=== PATIENT | female | born 2000 | race Asian ===

== ENCOUNTER 2025-03-29 13:18 | Outpatient (AMB) | payer BC, SELFPAY ==
--- NOTE | 2025-03-29 13:32 | OBCLNT_ITS ---
Vital Signs 03/29/25 13:33 Height 1.55 m Height Method Stated Weight 54.034 kg Weight Measurement Method Standing Scale BMI 22.5 BP 117/76 Blood Pressure Source Automatic Cuff Blood Pressure Location Left Upper Arm Position Sitting Respiration 14 Pulse 72 Pulse Source Monitor Temp 97.8 F Temp Source Oral Pulse Oximetry (%) 98 Oxygen Delivery Method Room Air Allergies/Home Meds Allergies & Medications Allergies NKA Allergy (Unknown, Uncoded 03/29/25 13:36) Medication Reconciliation vitamin-ferrous fumarate 28 mg iron-folic acid 800 mcg tablet ( Vitamins with Minerals) 1 tab PO QDAY #60 tabs 03/29/25 [Rx] Intake Visit Data Collection New Patient or Established: Established Patient (seen at [facility] within 3 years) Reason for Visit:: INITIAL CARE Seen by Clinical Staff ONLY (RN/MA): No Do You Feel Safe at Home: Yes Authorities Contacted: N/A PCP or OBGYN visit in last 3 months: No Hx Now: Yes Are you currently on any form of Control: No Last menstrual period: 01/20/25 Pain Present Currently: Yes Pain Location: Abdomen and Back Pain Scale Used: Arreguin-Carias/Numerical Pain scale:: 7 Smoking Status Smoking Status: Never smoker Questionnaires Covid-19 Vaccine Questionnaire Has patient been vacinated for Covid-19 Have you been vacinated for Covid-19: Yes PHQ-9 PHQ-2 Over the last 2 weeks, how often have you been bothered by any of the following problems? 1. Little interest or pleasure in doing things: not at all 2. Feeling down, depressed, or hopeless: not at all Total score: 0 PHQ-9 3. Trouble falling or staying asleep, or sleeping too much: Not at all 4. Feeling tired or having little energy: Not at all 5. Poor appetite or overeating: Not at all 6. Feeling bad about yourself - or that you are a failure or have let yourself or your family down: Not at all 7. Trouble concentrating on things, such as reading the newspaper or watching television: Not at all 8. Moving or speaking so slowly that other people could have noticed? - Or the opposite - being so fidgety or restless that you have been moving around a lot more than usual: not at all 9. Thoughts that you would be better off or of hurting yourself in some way: Not at all Total score: 0 Source: Developed by Drs. Bill Fernandez, Neyda Sullivan, Cheng Gregorio and colleagues, with an educational genevieve from [employer]. Depression screen completed yes Social History Living Situation History Marital Status: Life Partner Lives With: Family Housing: House Tobacco History Smoking Status: Never smoker Second Hand Smoke Exposure: No Alcohol History Alcohol Intake: Former Alcohol Intake Frequency: holidays/special occasions only Domestic Abuse History Do You Feel Safe at Home: Yes History of Present Illness HPI Narrative 25-year-old 1 para 0 for OBI. 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 She is here with her partner and they are both very happy. Her last period January 20, 2025. Estimated due date October 27, 2025. Patient denies any leaking, bleeding, cramping. She does have some minor first trimester dis comforts. Denies nausea and vomiting. History drinking alcohol prior to , beer and hard liquor. But she is not had anything with the . And she.denies tobacco use. No existence of any chronic health issues. And no surgeries. OB Initial Visit OB Flowsheet OB Flowsheet Initial Weight: Not Recorded Date -?-?-?-?-?-?-?-?-?-?-?-?- EGA Weight BP Alb Glu CTX Pres Fundal ht FHR Mov Dilation Station Effacement Hx Notes Visit Note 03/29/25 -?-?-?-?-?-?-?-?-?-?-?-?- 9w 5d 54.034 kg 117/76 absent unknown 9 145 absent 25-year-old 1 para 0 for OBI. Last. January 20, 2025. She her dates. Estimated due date October 27, 2025. She has some first trimester discomforts. Denies any nausea or vomiting. And denies bleeding, cramping, leaking verification today. I ordered prenatals. Patient given lab slip for her OB panel and NIPT, carrier screen. Schedule NT and genetics ultrasound with Dr. Chan. Discussed SAB precautions. Return in 4 weeks OB check Menstrual History Menstrual reliability: definite Flow: normal Menstrual regularity: regular Monthly: Yes Age at menarche: 18 On control pills at conception: No Date of positive home test: 03/10/25 Associated symptoms (LMP): Reports fatigue and breast tenderness OB History : 1 Infection History & Risk Evaluation History of STDs: none Genetic Screening & History Genetic Screening/Teratology Counseling - Includes patient, baby's father, or anyone in either family with: 1. Patient's age 35 years or older as of estimated date of delivery: No 2. Thalassemia (Persian, Bengali, Mediterranean, or Background); MCV less than 80: No 3. Neural Tube Defect (Meningomyelocele, Spina Bifida, or Anencephaly): No 4. Congenital Heart Defect: No 5. Down Syndrome: No 6. Yrn-Sachs (Ashkenazi Jehovah'S Witness, Cajun, Hebrew [place]): No 7. Desire Disease (Ashkenazi Jehovah'S Witness): No 8. Familial Dysautonomia (Ashkenazi Jehovah'S Witness): No 9. Sickle Cell Disease or Trait (): No 10. Hemophilia or other blood disorders: No 11. Muscular Dystrophy: No 12. Cystic Fibrosis: No 13. Union's Chorea: No 14. Mental Retardation/Autism: No 15. Other inherited genetic or chromosomal disorder: No 16. Maternal Metabolic Disorder (EG,TYPE 1 Diabetes, PKU): No 17. Patient or baby's father had a child with defects not listed above: No 18. Recurrent loss or a stillbirth: No 19. Medications (including supplements, vitamins, herbs or otc drugs)/illicit/recreational drugs/alcohol since last menstrual period: No 20. Any other: No Infection History 1. Live with someone with TB or exposed to TB: No 2. Rash or viral illness since last menstrual period: No 3. Hepatitis B,C: No Other (see comments) Source: [employer] Review of Systems Review of Systems Systems Reviewed: All systems reviewed, normal except as documented Constitutional Constitutional: Reports fatigue Endocrine Endocrine: Reports fatigue Exam General Limitations: no limitations General Appearance: alert, in no apparent distress, comfortable, cooperative, healthy appearing, well developed and well groomed Head Head exam: atraumatic, normocephalic and normal inspection ENT ENT exam: Present normal exam, normal oropharynx and mucous membranes moist Chest Chest inspection: Present normal inspection and symmetric chest wall rise Resp Respiratory exam: Present normal lung sounds bilaterally Card Cardiovascular exam: Present regular rate, normal rhythm and normal heart sounds Abdominal Abdominal exam: Present soft and normal bowel sounds Extremities Extremities exam: Present normal inspection and full ROM Psych Psychiatric exam: Present normal affect and normal mood Results Objective Laboratory: + preg test Office Procedures OBC Clinic LOC & Office Proc's Nursing/Assessment Patient Status: Established Patient OB Clinic Nursing Assessment: Medication Reconciliation, Update PMH in EMR and Vital Signs OB Clinic Coordination of Care: Complex Care and Chronic Disease 1-5, Consent,records obtained, informed consent, Education Simp Pt/Fam, Lab and Imaging orders, Results/Orders obtained and Staff clarify orders Special Needs: Heart tones Miscellaneous Interventions: Blood/Urine Collection Established Patient Charge Established Patient Point Assignment: 165 Established Patient Point Charge: EP Level 5 (160-above) In Clinic Bedside tests/procedures Bedside HCG: Yes Results Urine HCG Urine HCG Positive Last Edit by Anabella Harris MA on 03/29/25 13:44 Assessment & Plan Diagnosis / Problem List (1) Encounter for supervision of high risk in first trimester, antepartum: Status: Acute Plan OB panel today. With NIPT and carrier screen. verification. Gave prescription for vitamins. Schedule NT and anatomy scan with Dr. Chan. Discussed SAB precautions. I discussed diet and weight. Return in 4 weeks OB check Additional Plan Follow Up: 4 Weeks (obc)
[2025-03-29 13:33] VITALS: BP 117/76; PULSE 72; RESP 14; TEMP 36.6; O2SAT 98; BMI 22.5
== END 2025-03-29 13:59 | disposition home or self-care (01) ==
LOC: HODSOBC 13:18
PROVIDERS: Supervising Provider Advanced Practice Midwife; Visit Provider Advanced Practice Midwife
DX: O09.91 Supervision of high risk pregnancy, unspecified, first trimester (principal); Z3A.09 9 weeks gestation of pregnancy
CPT/HCPCS: 81025; 99215; G0463

== ENCOUNTER 2025-05-10 10:24 | Outpatient (AMB) | payer BC, SELFPAY ==
--- NOTE | 2025-05-10 10:29 | AMB.OBPNC ---
Vital Signs 05/10/25 10:30 Height 1.55 m Height Method Stated Weight 54.601 kg Weight Measurement Method Standing Scale BMI 22.7 BP 125/74 Blood Pressure Source Automatic Cuff Blood Pressure Location Left Upper Arm Position Sitting Respiration 18 Pulse 85 Pulse Source Monitor Temp 97.2 F Temp Source Oral Pulse Oximetry (%) 98 Oxygen Delivery Method Room Air Allergies/Home Meds Allergies & Medications Allergies NKA Allergy (Unknown, Uncoded 05/10/25 10:30) Medication Reconciliation vitamin-ferrous fumarate 28 mg iron-folic acid 800 mcg tablet ( Vitamins with Minerals) 1 tab PO QDAY #60 tabs 03/29/25 [Rx Confirmed 05/10/25] Immunizations Immunizations Flu Vaccine in the Last 12 Months: No Flu Vaccine Exclusion Criteria: No Exclusion Criteria Care OB Visit Log OB Flowsheet Initial Weight: Not Recorded Date <del>?</del> EGA Weight BP Alb Glu CTX Pres Fundal ht FHR Mov Dilation Station Effacement Hx Notes Visit Note 03/29/25 <del>?</del> 9w 5d 54.034 kg 117/76 absent unknown 9 145 absent 25-year-old 1 para 0 for OBI. Last. January 20, 2025. She her dates. Estimated due date October 27, 2025. She has some first trimester discomforts. Denies any nausea or vomiting. And denies bleeding, cramping, leaking verification today. I ordered prenatals. Patient given lab slip for her OB panel and NIPT, carrier screen. Schedule NT and genetics ultrasound with Dr. Chan. Discussed SAB precautions. 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 Denies leaking, bleeding, contractions. Feels flutters Discussed comfort measures for sciatic pain and back pain. Discussed SAB precautions. We reviewed labs and gender. Patient had her first ultrasound April 27 with [facility] and has a follow-up in 7 weeks return in 4 weeks OB check 05/10/25 <del>?</del> 15w 5d 54.601 kg 125/74 absent unknown 15 145 absent fainted at home for 15sec. no residual effect, works at [employer]. stands 8 hr shift. increased smoke is causing headaches. no SAB complaints f/u mfm in 4 week, discuss sab precaution. increase protein and small meals, increase fluid f/u mfm in 4 week, discuss sab precaution. increase protein and small meals, increase fluid, MARIEL Calculator Estimated Delivery Date Method Current WG Current Estimate 10/27/25 LMP (Certain) 15w 5d Other Estimates 10/27/25 Ultrasound #1 15w 5d 10/27/25 Manual 15w 5d final mariel: 10/27/25/21% Notes Visit Date: 04/28/25 Last Updated by: Juany Blair CNM O+,abs-, rpr;;nr, rub imm, HBSAG-,hiv-,hc-, GC/CT-, UT-, UA-, , NIPT/carrier screen- Visit Date: 03/29/25 Last Updated by: Juany Blair CNM 25 yo . LMP 01/20/25. EDC: 10/27/25 Office Procedures OBC Clinic LOC & Office Proc's Nursing/Assessment Patient Status: Established Patient OB Clinic Nursing Assessment: Medication Reconciliation, Update PMH in EMR and Vital Signs OB Clinic Coordination of Care: Consent,records obtained, informed consent, Education Simp Pt/Fam, Lab and Imaging orders, Results/Orders obtained and Staff clarify orders Special Needs: Heart tones Established Patient Charge Established Patient Point Assignment: 110 Established Patient Point Charge: EP Level 3 (80-115) Assessment & Plan Diagnosis / Problem List (1) Encounter for supervision of high risk in second trimester, antepartum: Status: Acute Plan Consult with OB. Off work for 4 weeks and reevaluate. Increase proteins. Keep OB appointment in May for anatomy scan. Discussed return precautions. Increase fluids. Small frequent meals and return in 4 weeks OB to and AFP Additional Plan Follow Up: 4 Weeks (obc)
[2025-05-10 10:30] VITALS: BP 125/74; PULSE 85; RESP 18; TEMP 36.2; O2SAT 98; BMI 22.7
== END 2025-05-10 11:23 | disposition home or self-care (01) ==
LOC: HODSOBC 10:24
PROVIDERS: Supervising Provider Advanced Practice Midwife; Visit Provider Advanced Practice Midwife
DX: O09.92 Supervision of high risk pregnancy, unspecified, second trimester (principal); Z3A.15 15 weeks gestation of pregnancy
CPT/HCPCS: 99213; G0463

== ENCOUNTER 2025-05-26 11:20 | Outpatient (AMB) | payer BC, SELFPAY ==
[2025-05-26 11:25] VITALS: BP 112/68; PULSE 88; RESP 18; TEMP 36.8; O2SAT 98; BMI 23.1
--- NOTE | 2025-05-26 11:25 | OBCLNT_ITS ---
Vital Signs 05/26/25 11:25 Height 1.55 m Height Method Stated Weight 55.508 kg Weight Measurement Method Standing Scale BMI 23.1 BP 112/68 Blood Pressure Source Automatic Cuff Blood Pressure Location Left Upper Arm Position Standing Respiration 18 Pulse 88 Pulse Source Monitor Temp 98.2 F Temp Source Oral Pulse Oximetry (%) 98 Oxygen Delivery Method Room Air Allergies/Home Meds Allergies & Medications Allergies NKA Allergy (Unknown, Uncoded 05/26/25 11:26) Medication Reconciliation vitamin-ferrous fumarate 28 mg iron-folic acid 800 mcg tablet ( Vitamins with Minerals) 1 tab PO QDAY #60 tabs 03/29/25 [Rx Confirmed 05/26/25] Immunizations Immunizations Flu Vaccine in the Last 12 Months: No Flu Vaccine Exclusion Criteria: No Exclusion Criteria Care OB Visit Log OB Flowsheet Initial Weight: Not Recorded Date -?-?-?-?-?-?-?-?-?-?-?-?- EGA Weight BP Alb Glu CTX Pres Fundal ht FHR Mov Dilation Station Effacement Hx Notes Visit Note 03/29/25 -?-?-?-?-?-?-?-?-?-?-?-?- 9w 5d 54.034 kg 117/76 absent unknown 9 145 absent 25-year-old 1 para 0 for OBI. Last. January 20, 2025. She her dates. Estimated due date October 27, 2025. She has some first trimester discomforts. Denies any nausea or vomiting. And denies bleeding, cramping, leaking verification today. I ordered prenatals. Patient given lab slip for her OB panel and NIPT, carrier screen. Schedule NT and genetics ultrasound with Dr. Chan. Discussed SAB precautions. Return in 4 weeks OB check 04/28/25 -?-?-?-?-?-?-?-?-?-?-?-?- 14w 0d 54.544 kg 114/77 absent unknown 14 145 absent Complains of sciatic pain. 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 Denies leaking, bleeding, contractions. Feels flutters Discussed comfort measures for sciatic pain and back pain. Discussed SAB precautions. We reviewed labs and gender. Patient had her first ultrasound April 27 with [facility] and has a follow-up in 7 weeks return in 4 weeks OB check 05/10/25 -?-?-?-?-?-?-?-?-?-?-?-?- 15w 5d 54.601 kg 125/74 absent unknown 15 145 absent fainted at home for 15sec. no residual effect, works at [employer]. stands 8 hr shift. increased smoke is causing headaches. no SAB complaints f/u mfm in 4 week, discuss sab precaution. increase protein and small meals, increase fluid f/u mfm in 4 week, discuss s ab precaution. increase protein and small meals, increase fluid, 05/26/25 -?-?-?-?-?-?-?-?-?-?-?-?- 18w 0d 55.508 kg 112/68 absent unknown 18 149 active Light movement. Patient has been resting and eating more. No fainting episodes while on disability. Denies leaking, bleeding, contractions Plan is to extend disability for another 4 weeks. Discussed SAB precautions. aFP. She has MFM scheduled for 10 June MARIEL Calculator Estimated Delivery Date Method Current WG Current Estimate 10/27/25 LMP (Certain) 18w 0d Other Estimates 10/27/25 Ultrasound #1 18w 0d 10/27/25 Manual 18w 0d final mariel: /21% Notes Visit Date: 04/28/25 Last Updated by: Juany Blair CNM O+,abs-, rpr;;nr, rub imm, HBSAG-,hiv-,hc-, GC/CT-, UT-, UA-, , NIPT/carrier screen- Visit Date: 03/29/25 Last Updated by: Juany Blair CNM 25 yo . LMP 01/20/25. EDC: 10/27/25 Office Procedures OBC Clinic LOC & Office Proc's Nursing/Assessment Patient Status: Established Patient OB Clinic Nursing Assessment: Medication Reconciliation, Update PMH in EMR and Vital Signs OB Clinic Coordination of Care: Consent,records obtained, informed consent, Education Simp Pt/Fam, Lab and Imaging orders, Results/Orders obtained and Staff clarify orders Special Needs: Heart tones Established Patient Charge Established Patient Point Assignment: 110 Established Patient Point Charge: EP Level 3 (80-115) Assessment & Plan Diagnosis / Problem List (1) Encounter for supervision of high risk in second trimester, antepartum: Status: Acute Plan aFP. Patient has a follow-up anatomy scan June 10. Cramping and backache and discomforts is improved on disability. Patient would like to extend. So we will visit that at her next appointment and return in 4 weeks OB check Additional Plan Follow Up: 4 Weeks (OBC)
== END 2025-05-26 11:29 | disposition home or self-care (01) ==
LOC: HODSOBC 11:20
PROVIDERS: Supervising Provider Advanced Practice Midwife; Visit Provider Advanced Practice Midwife
DX: O09.892 Supervision of other high risk pregnancies, second trimester (principal); O99.891 Other specified diseases and conditions complicating pregnancy; Z3A.18 18 weeks gestation of pregnancy; M54.9 Dorsalgia, unspecified
CPT/HCPCS: 99213; G0463

== ENCOUNTER 2025-06-06 08:29 | Outpatient (AMB) | payer BC, SELFPAY ==
[2025-06-06 08:38] VITALS: BP 115/74; PULSE 110; RESP 18; TEMP 36.6; O2SAT 98; BMI 23.3
--- NOTE | 2025-06-06 08:38 | AMB.OBPNC ---
Vital Signs 06/06/25 08:38 Height 1.55 m Height Method Stated Weight 55.905 kg Weight Measurement Method Standing Scale BMI 23.3 BP 115/74 Blood Pressure Source Automatic Cuff Blood Pressure Location Left Upper Arm Position Sitting Respiration 18 Pulse 110 H Pulse Source Monitor Temp 97.8 F Temp Source Oral Pulse Oximetry (%) 98 Oxygen Delivery Method Room Air Allergies/Home Meds Allergies & Medications Allergies NKA Allergy (Unknown, Uncoded 06/06/25 08:39) Medication Reconciliation vitamin-ferrous fumarate 28 mg iron-folic acid 800 mcg tablet ( Vitamins with Minerals) 1 tab PO QDAY #60 tabs 03/29/25 [Rx Confirmed 06/06/25] Immunizations Immunizations Flu Vaccine in the Last 12 Months: No Flu Vaccine Exclusion Criteria: Refused by Patient Care OB Visit Log OB Flowsheet Initial Weight: Not Recorded Date <del>?</del> EGA Weight BP Alb Glu CTX Pres Fundal ht FHR Mov Dilation Station Effacement Hx Notes Visit Note 03/29/25 <del>?</del> 9w 5d 54.034 kg 117/76 absent unknown 9 145 absent 25-year-old 1 para 0 for OBI. Last. January 20, 2025. She her dates. Estimated due date October 27, 2025. She has some first trimester discomforts. Denies any nausea or vomiting. And denies bleeding, cramping, leaking verification today. I ordered prenatals. Patient given lab slip for her OB panel and NIPT, carrier screen. Schedule NT and genetics ultrasound with Dr. Chan. Discussed SAB precautions. 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 Denies leaking, bleeding, contractions. Feels flutters Discussed comfort measures for sciatic pain and back pain. Discussed SAB precautions. We reviewed labs and gender. Patient had her first ultrasound April 27 with [facility] and has a follow-up in 7 weeks return in 4 weeks OB check 05/10/25 <del>?</del> 15w 5d 54.601 kg 125/74 absent unknown 15 145 absent fainted at home for 15sec. no residual effect, works at [employer]. stands 8 hr shift. increased smoke is causing headaches. no SAB complaints f/u mfm in 4 week, discuss sab precaution. increase protein and small meals, increase fluid f/u mfm in 4 week, discuss sab precaution. increase protein and small meals, increase fluid, 05/26/25 <del>?</del> 18w 0d 55.508 kg 112/68 absent unknown 18 149 active Light movement. Patient has been resting and eating more. No fainting episodes while on disability. Denies leaking, bleeding, contractions Plan is to extend disability for another 4 weeks. Discussed SAB precautions. aFP. She has MFM scheduled for 06/06/25 <del>?</del> 19w 4d 55.905 kg 115/74 absent unknown 18 145 active Reports positive movement. Denies contractions, leaking, bleeding. Patient still has increased anxiety when she is out in public. She is still vomiting. Still backache. Less complaints of dizziness at this time. Extend disability to July 24, 2025. Keep appointment with M. Discussed labor precautions. Discussed AFP. Return in 4 weeks OB check MARIEL Calculator Estimated Delivery Date Method Current WG Current Estimate 10/27/25 LMP (Certain) 19w 4d Other Estimates 10/27/25 Ultrasound #1 19w 4d 10/27/25 Manual 19w 4d final mariel: 10/27/25/21% Notes Visit Date: 06/06/25 Last Updated by: Juany Blair CNM AFP- Visit Date: 04/28/25 Last Updated by: Juany Blair CNM O+,abs-, rpr;;nr, rub imm, HBSAG-,hiv-,hc-, GC/CT-, UT-, UA-, , NIPT/carrier screen- Visit Date: 03/29/25 Last Updated by: Juany Blair CNM 25 yo . LMP 01/20/25. EDC: 10/27/25 Office Procedures OBC Clinic LOC & Office Proc's Nursing/Assessment Patient Status: Established Patient OB Clinic Nursing Assessment: Medication Reconciliation, Update PMH in EMR and Vital Signs OB Clinic Coordination of Care: Consent,records obtained, informed consent, Education Simp Pt/Fam, Lab and Imaging orders and Results/Orders obtained Special Needs: Heart tones Established Patient Charge Established Patient Point Assignment: 100 Established Patient Point Charge: EP Level 3 (80-115) Assessment & Plan Diagnosis / Problem List (1) Encounter for supervision of high risk in second trimester, antepartum: Status: Acute Plan Discussed SAB precautions. Discussed labor precautions. Discussed AFP is normal. Keep appointment with M for sono. Extend disability to July 24, 2025 due to discomforts no complications. Return in 4 weeks OB check Additional Plan Follow Up: 4 Weeks (obc)
== END 2025-06-06 09:27 | disposition home or self-care (01) ==
PROVIDERS: Supervising Provider Advanced Practice Midwife; Visit Provider Advanced Practice Midwife
DX: O09.892 Supervision of other high risk pregnancies, second trimester (principal); O99.342 Other mental disorders complicating pregnancy, second trimester; F41.9 Anxiety disorder, unspecified; O21.9 Vomiting of pregnancy, unspecified; O99.891 Other specified diseases and conditions complicating pregnancy; M54.9 Dorsalgia, unspecified; R42 Dizziness and giddiness; Z3A.19 19 weeks gestation of pregnancy; Z28.21 Immunization not carried out because of patient refusal
CPT/HCPCS: 99213; G0463